=== PATIENT | female | born 1940 | race Caucasian/White ===

== ENCOUNTER 2022-04-28 18:59 | Emergency (ER) | payer OTHER ==
[2022-04-28 19:13] VITALS: TEMP 97.6; BMI 28.3
[2022-04-28 21:15] LABS: BASO % 0.9 % (0-2.0); EOS % 3.6 % (0-4.5); HEMATOCRIT 34.3 % (32.4-45.2); HEMOGLOBIN 11.2 GM/dL (10.7-15.3); LYMPH % 46.7 % (8-40); MCH 29.6 pg (25.7-33.7); MCHC 32.8 g/dl (32.0-36.0); MEAN PLT VOLUME 8.1 fl (7.5-11.1); MONO % 7.4 % (3.8-10.2); NEUT % 41.4 % (42.8-82.8); PLATELET COUNT 338 10^3/uL (134-434); RDW 13.8 % (11.6-15.6); WHITE BLOOD COUNT 5.6 K/mm3 (4.0-10.0)
[2022-04-28 21:28] LABS: CALCIUM 9.1 mg/dL (8.5-10.1)
[2022-04-28 21:29] LABS: ALBUMIN 3.5 g/dl (3.4-5.0); BLOOD UREA NITROGEN 16.2 mg/dL (7-18)
[2022-04-28 21:32] LABS: CREATININE 0.8 mg/dL (0.55-1.3)
[2022-04-28 21:34] LABS: TOT PROT 7.7 g/dl (6.4-8.2)
[2022-04-28 21:35] LABS: BILIRUBIN,TOTAL 0.3 mg/dL (0.2-1)
[2022-04-28 23:13] VITALS: BP 190/68; PULSE 60
== END 2022-04-28 23:19 | disposition home or self-care (01) ==
LOC: JER 18:59
DX: R06.01 Orthopnea (principal)
CPT/HCPCS: 0241U-QW; 36415; 71046-TC-FY; 80053; 83880; 84484; 85025; 93005; 93010; 99285-25